=== PATIENT | male | born 1980 | race Caucasian/White ===

== ENCOUNTER 2017-04-30 13:29 | Emergency (ER) | payer OTHER ==
[~2017-04-30] VITALS: Ht 170.2 cm; Wt 79.0 kg
[2017-04-30 13:30] VITALS: BP 122/82; PULSE 78; RESP 15; TEMP 97.5; O2SAT 97
[2017-04-30] MEDS ORDERED: KETOROLAC TROMETHAMINE 60 MG/2 ML (IM) VIAL IM ONE (15:30)
[2017-04-30] MEDS ORDERED: ORPHENADRINE INJ 60 MG/2 ML AMP IM ONE (15:30)
[2017-04-30] MEDS ORDERED: ROBA500T PO (15:34)
[2017-04-30] MEDS ORDERED: MEDR4PAK PO (15:34)
--- NOTE | 2017-04-30 15:35 | PD ---
HPI Chief Complaint: Back/ Neck Pain or Injury Time Seen by Provider: 15:28 Travel History International Travel<30 days: No Contact w/Intl Traveler<30days: No Traveled to known affect area: No History of Present Illness HPI 36-year-old male presents emergency Department with complaint of low back pain 2 and half weeks. Denies new or recent injury. Has chronic low back pain for 10 years. Symptoms of exacerbation are similar to past exacerbations. Pain radiates down the right leg. Denies encopresis, incontinence, saddle anesthesias. Denies IV drug use or cancer. Denies fever, vomiting, change in urine or stool. Denies abdominal pain. Denies paresthesias, loss of sensation , decreased range of motion, decreased strength to bilateral lower extremities. Has been taking ibuprofen and Aleve for symptom management with no relief of symptoms. Pain is aggravated with movement and ambulation. Pain is decreased while laying flat. Symptoms are moderate in severity. Has no known allergies. No other medical complaints. No other modifying factors or associated signs and symptoms. PFSH Past Medical History Diabetes: Yes Social History Tobacco Use: No Allergies-Medications (Allergen,Severity, Reaction): Coded Allergies: No Known Allergies (Unverified , 04/30/17) Reported Meds & Prescriptions Reported Meds & Active Scripts Active Amoxicillin 500 Mg Cap 500 Mg PO BID 10 Days Robaxin (Methocarbamol) 500 Mg Tab 500 Mg PO QID Medrol Dosepak (Methylprednisolone) 4 Mg Dspk 4 Mg PO DIRECTED Per Pharmacist direction Review of Systems Except as stated in HPI: all other systems reviewed are Neg Physical Exam Narrative GENERAL: Well-nourished, well-developed male patient, in no acute distress; afebrile, nontoxic-appearing SKIN: Warm and dry. HEAD: Atraumatic. Normocephalic. No facial edema, erythema, tenderness on palpation. No lymphadenopathy. EYES: Pupils equal and round. No scleral icterus. No injection or drainage. ENT: Mucosa pink and moist. No erythema or exudates. No uvular edema. No uvular , palatal, or tonsillar deviation. Airway patent. MOUTH: Mucous membranes moist, no lesions, tongue and gums appear normal. Tooth #17 is impacted and with tenderness on palpation. Surrounding gingiva is without erythema, edema, drainage. No obvious abscess noted. NECK: Trachea midline. No lymphadenopathy. CARDIOVASCULAR: Regular rate. RESPIRATORY: No accessory muscle use. GASTROINTESTINAL: Rounded. MUSCULOSKELETAL: Bilateral lower extremities supple and non-tense with 2+ pedal pulses and sensory intact; with full range of motion and 5/5 strength. 2 + DTRs bilaterally. Active dorsiflexion and extension of bilateral feet. Right straight leg raise is positive for low back pain. Ambulatory in room with guarded gait. Sitting up in bed at 90. No obvious deformities. No clubbing. No cyanosis. No edema. BACK: No midline point tenderness on palpation of the lumbar spine. Tenderness on palpation of right lumbar iliosacral area. No obvious deformities. NEUROLOGICAL: Awake and alert. Oriented 3. No obvious cranial nerve deficits. Motor grossly within normal limits. Normal speech. Moves all extremities. 5/5 strength to all extremities. Sensory intact. PSYCHIATRIC: Appropriate mood and affect; insight and judgment normal. Data Data Last Documented VS Vital Signs Date Time Temp Pulse Resp B/P (MAP) Pulse Ox O2 Delivery O2 Flow Rate FiO2 04/30/17 13:30 97.5 78 15 122/82 (95) 97 Orders Orders Ketorolac Inj (Toradol Inj) (04/30/17 15:30) Orphenadrine Inj (Norflex Inj) (04/30/17 15:30) Ed Discharge Order (04/30/17 15:31) MDM Medical Decision Making Medical Screen Exam Complete: Yes Emergency Medical Condition: Yes Medical Record Reviewed: Yes Differential Diagnosis Acute exacerbation of chronic low back pain, sciatica, dentalgia Narrative Course 36-year-old male physical exam consistent with acute exacerbation of chronic low back pain, right-sided sciatica, and dentalgia of tooth #17. Patient is afebrile and nontoxic-appearing. Denies fever, vomiting. Denies encopresis, incontinence, saddle anesthesias. Denies IV drug use or cancer. Neuro exam is unremarkable. Toradol and Norflex administered in the ER. Amoxicillin, Medrol Dosepak, Robaxin prescribed for home. Instructed patient to follow up with dentist. Patient provided emergency dental information sheet for follow-up. Patient provided information to [facility] for follow-up. Instructed patient to follow up with primary care provider. Patient verbalizes understanding and agreement with treatment plan. Patient is medically cleared and stable for discharge. Discussed reasons to return to the emergency department. Patient agrees with treatment plan. The patients vital signs are stable and the patient is stable for outpatient follow-up and treatment. Patient discharged home, stable and in no acute distress. Diagnosis Primary Impression: Acute exacerbation of chronic low back pain Additional Impressions: Sciatica of right side Dentalgia Referrals: [facility] Primary Care Physician Patient Instructions: Acute Low Back Pain (ED), General Instructions, Sciatica (ED) Additional Instructions: Tylenol or ibuprofen as directed and as needed for pain Robaxin as prescribed and as needed for muscle spasms Heating pad and/or ice to affected area to reduce pain Avoid aggravating activities; increase activity as tolerated Follow-up with primary care provider Return to emergency department immediately with worsening of symptoms Med/Other Pt SpecificInfo: Prescription(s) given Scripts Amoxicillin (Amoxicillin) 500 Mg Cap 500 MG PO BID for Infection for 10 Days, #20 CAP 0 Refills Prov: Jaja Martinez 04/30/17 Methocarbamol (Robaxin) 500 Mg Tab 500 MG PO QID for Muscle Spasm, #30 TAB 0 Refills Prov: Jaja Martinez 04/30/17 Methylprednisolone Dosepak (Medrol Dosepak) 4 Mg Dspk 4 MG PO DIRECTED, #1 DSPK 0 Refills Per Pharmacist direction Prov: Jaja Mratinez 04/30/17 Disposition: 01 DISCHARGE HOME Condition: Stable Jaja Martinez Apr 30, 2017 15:35
[2017-04-30] MEDS ORDERED: AMOX500C PO (15:40)
== END 2017-04-30 16:15 | disposition home or self-care (01) ==
LOC: NEPK 13:29
DX: M54.41 Lumbago with sciatica, right side (principal); G89.29 Other chronic pain
CPT/HCPCS: 96372; 99284; J1885; J2360